=== PATIENT | female | born 1995 | race Caucasian/White ===

== ENCOUNTER 2018-03-17 23:17 | Emergency (ER) | payer OTHER ==
[~2018-03-17] VITALS: Ht 154.9 cm; Wt 114.3 kg
[2018-03-17 23:21] VITALS: Ht 154.9 cm; Wt 114.3 kg
[2018-03-18 00:44] VITALS: BP 141/88
== END 2018-03-18 00:44 | disposition home or self-care (01) ==
LOC: ED 23:17
DX: J98.01 Acute bronchospasm (principal)
CPT/HCPCS: J7512; J7613; Q0092

== ENCOUNTER 2019-01-26 15:45 | Emergency (ER) | payer OTHER ==
[~2019-01-26] VITALS: Ht 152.4 cm; Wt 107.2 kg
[2019-01-26 15:57] VITALS: Ht 152.4 cm; Wt 107.2 kg
[2019-01-26 17:40] VITALS: BP 139/101
== END 2019-01-26 17:40 | disposition home or self-care (01) ==
LOC: ED 15:45
DX: J40 Bronchitis, not specified as acute or chronic (principal)

== ENCOUNTER 2019-01-31 02:38 | Emergency (ER) | payer OTHER ==
[~2019-01-31] VITALS: Ht 152.4 cm; Wt 90.7 kg
[2019-01-31 02:43] VITALS: Ht 152.4 cm; Wt 90.7 kg
[2019-01-31 03:06] LABS: PLATELET COUNT 287 x10^3mcL (130-400); RED CELL DISTRIBUTION WIDTH 13.5 % (11.5-14.5)
[2019-01-31 03:11] LABS: BASOPHIL % 32.5 % (0-2)
[2019-01-31 03:36] LABS: CALCIUM 8.5 mg/dL (8.5-10.1); CARBON DIOXIDE 25.1 mmol/L (21-32); CHLORIDE SERUM 104 mmol/L (98-107); CREATININE SERUM 0.7 mg/dL (0.6-1.0); GFR1 > 60 mL/min; GLUCOSE SERUM 128 mg/dL (74-106); POTASSIUM SERUM 3.7 mmol/L (3.5-5.1); SODIUM SERUM 141 mmol/L (136-145)
[2019-01-31 03:42] LABS: ALBUMIN 4.1 g/dL (3.4-5.0); ALKALINE PHOSPHATASE 64 U/L (46-116); ALT/SGPT 61 U/L (14-59); AMYLASE 52 U/L (25-115); AST/SGOT 34 U/L (15-37); BILIRUBIN TOTAL 0.43 mg/dL (0.20-1.00); LIPASE 122 IU/L (73-393); TOTAL PROTEIN, SERUM 7.4 g/dL (6.4-8.2)
[2019-01-31 06:53] VITALS: BP 116/69
== END 2019-01-31 06:53 | disposition home or self-care (01) ==
LOC: ED 02:38
PROVIDERS: Emergency Medicine
DX: R11.10 Vomiting, unspecified (principal); T51.91XA Toxic effect of unspecified alcohol, accidental (unintentional), initial encounter; Y92.89 Other specified places as the place of occurrence of the external cause
CPT/HCPCS: G0480; J2405; J2765; J7030

== ENCOUNTER 2019-05-20 12:35 | Emergency (ER) | payer OTHER ==
[~2019-05-20] VITALS: Ht 152.4 cm; Wt 120.2 kg
[2019-05-20 12:40] VITALS: Ht 152.4 cm; Wt 120.2 kg
[2019-05-20 14:15] VITALS: BP 148/86
== END 2019-05-20 14:15 | disposition home or self-care (01) ==
LOC: ED 12:35
DX: S51.852A Open bite of left forearm, initial encounter (principal); F41.9 Anxiety disorder, unspecified; W54.0XXA Bitten by dog, initial encounter; Y93.89 Activity, other specified; Y92.89 Other specified places as the place of occurrence of the external cause; Y99.8 Other external cause status
CPT/HCPCS: J2001

== ENCOUNTER 2020-06-09 22:46 | Emergency (ER) | payer SELFPAY ==
[~2020-06-09] VITALS: Ht 154.9 cm; Wt 124.7 kg
[2020-06-09 22:55] VITALS: Ht 154.9 cm; Wt 124.7 kg
[2020-06-10 01:27] LABS: BASOPHIL % 0.8 % (0-2); PLATELET COUNT 300 x10^3mcL (130-400); RED CELL DISTRIBUTION WIDTH 12.9 % (11.5-14.5)
[2020-06-10 01:42] LABS: CALCIUM 9.2 mg/dL (8.5-10.1); CHLORIDE SERUM 103 mmol/L (98-107); CREATININE SERUM 0.9 mg/dL (0.6-1.0); GFR1 > 60 mL/min; GLUCOSE SERUM 99 mg/dL (74-106); POTASSIUM SERUM 4.4 mmol/L (3.5-5.1); SODIUM SERUM 139 mmol/L (136-145)
[2020-06-10 01:47] LABS: ALBUMIN 3.8 g/dL (3.4-5.0); ALKALINE PHOSPHATASE 54 U/L (46-116); ALT/SGPT 61 U/L (14-59); AMYLASE 51 U/L (25-115); AST/SGOT 35 U/L (15-37); BILIRUBIN TOTAL 0.6 mg/dL (0.20-1.00); LIPASE 114 IU/L (73-393); TOTAL PROTEIN, SERUM 7.3 g/dL (6.4-8.2)
[2020-06-10 04:53] VITALS: BP 131/72
== END 2020-06-10 04:53 | disposition home or self-care (01) ==
LOC: ED 22:46
PROVIDERS: Emergency Medicine
DX: R10.31 Right lower quadrant pain (principal); R10.32 Left lower quadrant pain
CPT/HCPCS: J1885; Q0092